=== PATIENT | female | born 1965 | race Caucasian/White ===

== ENCOUNTER → 2016-11-02 19:02 | Outpatient (CLI) | payer OTHER | END | disposition home or self-care (01) | LOC: D.MAMMO 16:15 | DX: Z12.31 Encounter for screening mammogram for malignant neoplasm of breast (principal) ==

== ENCOUNTER → 2017-01-16 15:32 | Outpatient (CLI) | payer MEDICAID | END | disposition home or self-care (01) | LOC: D.CT 15:32 → D.MRI 16:00 | DX: M54.5 Low back pain (principal); R51 Headache; I10 Essential (primary) hypertension ==

== ENCOUNTER → 2017-02-07 12:30 | Outpatient (CLI) | payer MEDICAID | END | disposition home or self-care (01) | LOC: D.CT 12:30 | DX: R10.9 Unspecified abdominal pain (principal) ==

== ENCOUNTER → 2017-08-03 14:35 | Outpatient (CLI) | payer MEDICAID | END | disposition home or self-care (01) | LOC: D.MRI 14:35 | DX: M54.6 Pain in thoracic spine (principal) ==